=== PATIENT | male | born 1960 | race Caucasian/White ===

== ENCOUNTER 2021-02-18 09:27 | Emergency (ER) | payer BC ==
[~2021-02-18] VITALS: Ht 182.9 cm; Wt 84.1 kg
[2021-02-18 10:58] LABS: BASOPHILS # (AUTO) 0.1 X10'3 (0-0.2); BASOPHILS % (AUTO) 0.8 % (0-1); EOSINOPHILS # (AUTO) 0.2 X10'3 (0-0.9); EOSINOPHILS % (AUTO) 2.5 % (0-6); HEMATOCRIT 42.8 % (42.0-52.0); HEMOGLOBIN 14.7 g/dl (14.0-17.9); LYMPHOCYTES # (AUTO) 1.6 X10'3 (1.1-4.8); LYMPHOCYTES % (AUTO) 17.4 % (21-51); MEAN CORPUSCULAR HEMOGLOBIN 30.7 PG (27.0-31.0); MEAN CORPUSCULAR HGB CONC 34.2 g/dL (33.0-36.5); MEAN CORPUSCULAR VOLUME 89.6 FL (78-98); MEAN PLATELET VOLUME 8.8 FL (7.4-10.4); MONOCYTES # (AUTO) 0.8 X10'3 (0-0.9); MONOCYTES % (AUTO) 8.9 % (2-12); NEUTROPHILS # (AUTO) 6.5 X10'3 (1.8-7.7); NEUTROPHILS % (AUTO) 70.4 % (42-75); PLATELET COUNT 388 X10'3 (140-440); RED BLOOD COUNT 4.78 X10'6 (4.70-6.10); RED CELL DISTRIBUTION WIDTH 12.7 % (11.5-14.5); WHITE BLOOD COUNT 9.2 X10'3 (4.5-11.0)
[2021-02-18] MEDS ORDERED: furosemide 40mg/4ml inj IV ONE (11:40)
[2021-02-18 11:46] LABS: D-DIMER 0.75 MG/L FEU (0-0.50)
[2021-02-18 12:06] LABS: ANION GAP 10 (8-16); BILIRUBIN,TOTAL 0.6 MG/DL (0.1-1.0); CALCIUM 8.8 MG/DL (8.5-10.1); CHLORIDE 98 MMOL/L (99-107); CREATININE 1.22 MG/DL (0.60-1.10); GLUCOSE 404 MG/DL (70-104); POTASSIUM 3.8 MMOL/L (3.5-5.1); SODIUM 131 MMOL/L (135-145); TOTAL CARBON DIOXIDE 22.9 MMOL/L (24-32); eGFR 61 ML/MIN
[2021-02-18 12:07] LABS: ALANINE AMINOTRANSFERASE 41 U/L (12-78); ALBUMIN 3.5 G/DL (3.4-5.0); ALBUMIN/GLOBULIN RATIO 0.9 (1.1-1.5); ALKALINE PHOSPHATASE 53 IU/L (46-116); TOTAL PROTEIN 7.4 G/DL (6.4-8.2)
[2021-02-18 12:36] LABS: ASPARTATE AMINO TRANSFERASE 18 U/L (10-37); BLOOD UREA NITROGEN 22 MG/DL (7-18)
[2021-02-18] MEDS ORDERED: ASPI-611 PO (12:39)
[2021-02-18] MEDS ORDERED: LOSA1TAB41 PO (12:45)
[2021-02-18] MEDS ORDERED: diltiazem 5mg/ml 5ml inj. IV ONE (13:50)
[2021-02-18] MEDS ORDERED: CARV3.122 PO (13:58)
[2021-02-18] MEDS ORDERED: metoprolol tartrate 1mg/ml inj IV ONE (14:15)
[2021-02-18 17:14] VITALS: BP 116/77
--- NOTE | 2021-02-18 17:15 | NUR ---
PT REFUSING MEDICAL TREATMENT AND WISHES TO LEAVE MD IAM MODI AWARE AND SPOKE WITH PATIENTS AND EXPLAINED THE RISKS.
== END 2021-02-18 17:16 | disposition left against medical advice (07) ==
LOC: ER 09:28
DX: I50.9 Heart failure, unspecified (principal); Z20.822 Contact with and (suspected) exposure to COVID-19; R73.9 Hyperglycemia, unspecified; I48.91 Unspecified atrial fibrillation; R07.89 Other chest pain; R06.02 Shortness of breath; R53.1 Weakness; R20.0 Anesthesia of skin; Z88.1 Allergy status to other antibiotic agents; Z79.82 Long term (current) use of aspirin; Z79.899 Other long term (current) drug therapy
CPT/HCPCS: 36415; 71045; 80053; 83880; 84484; 85025; 85379; 87635; 93005; 96374; 96375; 99285; C9803; J1940; J3490

== ENCOUNTER 2021-02-18 20:41 | Inpatient (IN) | payer BC ==
[~2021-02-18] VITALS: Ht 185.4 cm; Wt 85.9 kg
[~2021-02-18 20:41] MED LIST: ASPI-611 PO; CARV3.122 PO; LOSA1TAB41 PO
[2021-02-18] MEDS ORDERED: diltiazem 30mg tablet PO ONE (21:10)
[2021-02-18] MEDS ORDERED: diltiazem 5mg/ml 5ml inj. IV ONE (21:10)
[2021-02-18] MEDS ORDERED: normal saline 1000ML IV soln IVB ONE (21:20)
[2021-02-18 22:05] LABS: ALANINE AMINOTRANSFERASE 37 U/L (12-78); ALBUMIN 3.2 G/DL (3.4-5.0); ALBUMIN/GLOBULIN RATIO 0.8 (1.1-1.5); ALKALINE PHOSPHATASE 51 IU/L (46-116); ANION GAP 5 (8-16); ASPARTATE AMINO TRANSFERASE 14 U/L (10-37); BILIRUBIN,TOTAL 0.6 MG/DL (0.1-1.0); BLOOD UREA NITROGEN 24 MG/DL (7-18); BUN/CREATININE RATIO 16.7 (5.4-32.0); CALCIUM 8.9 MG/DL (8.5-10.1); CHLORIDE 100 MMOL/L (99-107); CREATININE 1.44 MG/DL (0.60-1.10); GLUCOSE 355 MG/DL (70-104); POTASSIUM 3.6 MMOL/L (3.5-5.1); SODIUM 133 MMOL/L (135-145); TOTAL CARBON DIOXIDE 27.9 MMOL/L (24-32); eGFR 50 ML/MIN
[2021-02-18] MEDS ORDERED: enoxaparin 100mg/ml syringe SUBCUT ONE (22:10)
[2021-02-18] MEDS ORDERED: iohexol 350MG/ML 100ml bottle IV ONE (22:22)
[2021-02-18] MEDS ORDERED: metoprolol tartrate 1mg/ml inj IV ONE (23:05)
[2021-02-18] MEDS ORDERED: enoxaparin 40mg/0.4ml syringe SUBCUT ONE (23:10)
[2021-02-18] MEDS ORDERED: ondansetron/PF 4mg/2ml inj IV PRN (23:10)
[2021-02-18] MEDS ORDERED: magnesium hydroxide 30ml (MOM) UD suspension PO PRN (23:10)
[2021-02-18] MEDS ORDERED: acetaminophen 325mg tablet PO PRN (23:10)
[2021-02-18] MEDS ORDERED: potassium Cl 20 mEq SR tablet PO PRN (23:10)
[2021-02-18] MEDS ORDERED: PERFLUTREN PROTEIN-A MICROSPHR (Optison) 0.22 MG/ML 3ML VIAL IV PRN (23:10)
[2021-02-18] MEDS ORDERED: mag hydrox/Alum hydrox/simeth 30ml oral suspension PO PRN (23:10)
[2021-02-18] MEDS ORDERED: potassium Cl 40MEQ/1/2NS 520ml 520 ML IV PRN ×2 (23:10)
[2021-02-18] MEDS ORDERED: diltiazem-NS 100mg/100ml 100 ML IV SCH (23:25)
[2021-02-19 00:12] LABS: URINE AMPHETAMINE SCREEN NEGATIVE (Neg); URINE BARBITUATE SCREEN NEGATIVE (Neg); URINE BENZODIAZEPINES SCREEN NEGATIVE (Neg); URINE CANNABINOID SCREEN NEGATIVE (Neg); URINE COCAINE SCREEN NEGATIVE (Neg); URINE METHADONE SCREEN NEGATIVE (Neg); URINE OPIATE SCREEN NEGATIVE (Neg); URINE PHENCYCLIDINE SCREEN NEGATIVE (Neg)
[2021-02-19 04:52] LABS: BASOPHILS # (AUTO) 0.1 X10'3 (0-0.2); BASOPHILS % (AUTO) 1.1 % (0-1); EOSINOPHILS # (AUTO) 0.2 X10'3 (0-0.9); EOSINOPHILS % (AUTO) 1.6 % (0-6); HEMATOCRIT 39.2 % (42.0-52.0); HEMOGLOBIN 13.4 g/dl (14.0-17.9); LYMPHOCYTES # (AUTO) 2.1 X10'3 (1.1-4.8); LYMPHOCYTES % (AUTO) 20.4 % (21-51); MEAN CORPUSCULAR HEMOGLOBIN 30.5 PG (27.0-31.0); MEAN CORPUSCULAR HGB CONC 34.1 g/dL (33.0-36.5); MEAN CORPUSCULAR VOLUME 89.3 FL (78-98); MEAN PLATELET VOLUME 9.1 FL (7.4-10.4); MONOCYTES # (AUTO) 0.9 X10'3 (0-0.9); MONOCYTES % (AUTO) 8.4 % (2-12); NEUTROPHILS % (AUTO) 68.5 % (42-75); PLATELET COUNT 335 X10'3 (140-440); RED BLOOD COUNT 4.39 X10'6 (4.70-6.10); RED CELL DISTRIBUTION WIDTH 12.5 % (11.5-14.5); WHITE BLOOD COUNT 10.1 X10'3 (4.5-11.0)
--- NOTE | 2021-02-19 05:18 | NUR ---
Patient in room ED 10. I have received report from Rebecca ED RN and had the opportunity to ask questions and assume patient care.
[2021-02-19 05:33] LABS: ALANINE AMINOTRANSFERASE 28 U/L (12-78); ALBUMIN 2.8 G/DL (3.4-5.0); ALBUMIN/GLOBULIN RATIO 0.8 (1.1-1.5); ALKALINE PHOSPHATASE 31 IU/L (46-116); ANION GAP 12 (8-16); ASPARTATE AMINO TRANSFERASE 15 U/L (10-37); BILIRUBIN,TOTAL 0.5 MG/DL (0.1-1.0); BLOOD UREA NITROGEN 19 MG/DL (7-18); BUN/CREATININE RATIO 17.6 (5.4-32.0); CALCIUM 7.6 MG/DL (8.5-10.1); CHLORIDE 104 MMOL/L (99-107); CREATININE 1.08 MG/DL (0.60-1.10); GLUCOSE 279 MG/DL (70-104); POTASSIUM 3.5 MMOL/L (3.5-5.1); SODIUM 140 MMOL/L (135-145); TOTAL CARBON DIOXIDE 23.7 MMOL/L (24-32); TOTAL PROTEIN 6.3 G/DL (6.4-8.2); eGFR 70 ML/MIN
[2021-02-19 05:39] LABS: CHOL/HDL RATIO 3.5 (0.00-4.99); CHOLESTEROL 177 MG/DL (0-200); HDL CHOLESTEROL 51 MG/DL (35-60); LDL CHOLESTEROL 102 MG/DL (50-100); TRIGLYCERIDES 131 MG/DL (20-135)
--- NOTE | 2021-02-19 05:50 | NUR ---
Pt arrived fr/ED via gurney in no acute distress. Assisted to bed w/o incident. IV Cardizem resumed as ordered. VSS, afebrile. Oriented to bed, room, and POC.
[2021-02-19 05:58] LABS: HEMOGLOBIN A1C 13.7 % (4.5-6.2)
[2021-02-19 06:00] VITALS: BP 132/60
--- NOTE | 2021-02-19 06:10 | NUR ---
Patient in room PCU 3024. I have received report from Faye NELSON and had the opportunity to ask questions and assume patient care.
--- NOTE | 2021-02-19 06:15 | NUR ---
Problems reprioritized. Patient report given, questions answered & plan of care reviewed with Monty NELSON.
[2021-02-19] MEDS: K and/or MAG REPLACEMENT MC SCH ×2 (08:00→20:00)
[2021-02-19] MEDS: aspirin 81mg, enteric-coated 1 TAB TABLET.DR PO SCH (08:24)
[2021-02-19] MEDS: furosemide 20 MG/2 ML vial IV SCH (08:25)
[2021-02-19] MEDS: docusate sod 100mg capsule PO SCH ×3 (08:25→20:17)
[2021-02-19] MEDS: HYDROchlorothiazide 12.5mg capsule PO SCH (08:25)
[2021-02-19] MEDS: losartan 50mg tablet PO SCH (08:25)
[2021-02-19] MEDS: carVEDilol 3.125mg tablet PO SCH ×2 (08:26→20:18)
--- NOTE | 2021-02-19 10:01 | NUR ---
PAGER ID: [phone] MESSAGE: Re: Louie Garcia. Room: 3024A. Pt converted to sinus rhythm. can we switch Pt over to PO Cardizem and DC IV Cardizem? -[facility] #[phone] -Dr. Zee paged concerning Pt's rhythm
[2021-02-19] MEDS: diltiazem 30mg tablet PO SCH ×3 (10:39→20:17)
--- NOTE | 2021-02-19 12:33 | NUR ---
Assumed care from Monty NELSON. Pt is a/ox3 stable, deny pain , talking with and daughter and all seem a little emotional but smiling. pt says no needs at this time
--- NOTE | 2021-02-19 13:30 | NUR ---
1310-PAGER ID: [phone] MESSAGE: [id number] Lyssa Mcpherson- Alerting you of critical result: K is 2.5, will administer prn K. [id number] 1328-PAGER ID: [phone] MESSAGE: [id number] Louie Garcia- current BG 357 before eating lunch, hx of metformin last october per Auricular Therapist and pt. Plan? BruceRDolly [phone]-Received call back from MD Zee with orders. Called back Auricular Therapist regarding Contact with Saadia and BG and she will consult today.
[2021-02-19] MEDS ORDERED: dextrose 50%-water 50ml dispensing syringe IV PRN ×2 (13:35)
[2021-02-19] MEDS ORDERED: dextrose ORAL solution 15 GM/59 ML bottle PO PRN ×2 (13:35)
[2021-02-19] MEDS ORDERED: insulin Lispro (HumaLOG) vial - multi-dose SQ SCH (13:35)
[2021-02-19] MEDS ORDERED: MESSAGE TO PHARMACY PO ONE (13:35)
[2021-02-19] MEDS ORDERED: glucagon, human recombinant 1mg kit SUBCUT PRN (13:35)
--- NOTE | 2021-02-19 13:40 | NUR ---
Pt refusing insulin. educated of risks.
--- NOTE | 2021-02-19 13:45 | NUR ---
1404-MD Zee updated on results of MRI, stroke nurse paged, 2 attempts to contact MRI made. Call Received from Stroke NUrse Wilfred, she says she will round in 20min and arrange tele neuro consult.
--- NOTE | 2021-02-19 15:00 | NUR ---
PAGER ID: [phone] MESSAGE: Louie Garcia- pt refusing insulin. Extreme fear of SQ insulin d/t family . He wants to know if he can take an oral antidiabetic besides metformin ( had foot swelling reaction). [id number] Received call back not long afte rthis page
--- NOTE | 2021-02-19 15:00 | NUR ---
Spent 30 min discussing DM disease process. Pt refuses insulin, he says his grandmother / mother had " from taking insulin" and that he is intensely afraid to take insulin. 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 He was pretty unrealistic about his tx of his disease by diet and exercise. He isn't seeing that his AIC is indicating his past methods are insufficient to manage DM without medication and I exorted him to not leave it unaddressed. He also tells me he doesn't take his bg because he " was given a meter without strips and I had to buy the strips but they didn't tell me that" and he saaid he can afford them. I discussed the dangers associated with neglecting these things and not accepting his disease and following the medical recomendsations he has reportedly had from his primary to tx it. he seemed to consider this. He is requesting to take an oral antidiabetic from his dr here.
--- NOTE | 2021-02-19 15:57 | NUR ---
Noted pt with A1c 13.7% with no PMH of DM in EMR. TC to clinical pharmacist who states pt with Metformin rx on home med list back in October. TC to RN to discuss findings and recommend CHO controlled diet be added to diet order. RN d/w pt who confirms he was on Metformin and reports he was told by his physician to stop taking it because he no longer had DM following wt loss. Pt seen at bedside with family present. Pt confirms statement of previously having DM and being told he no longer had it following 30 lb wt loss, however states he was recently told again by a different MD that he does have DM and was given an rx for Metformin, of which pt just briefly took (per daughter) before he chose to stop taking on his own accord about 1.5-2 months ago d/t it making his feet swell. RD encouraged pt to f/u with MD regarding different rx for DM management rather than to just discontinue taking the rx, pt verbalized understanding. 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 Pt reports he has a f/u appointment with his MD 03/10, RD encouraged pt to allow his MD to discuss management options with him in order for pt to achieve optimal BG levels. RD informed pt of current A1c and BG levels during admit, pt very adamantly refused taking insulin during admit or following discharge if given a home rx for insulin. RD informed pt of complications that can occur if blood sugars are not controlled and encouraged pt to discuss his options with RN and MD. Pt verbalized understanding though continued to state he will not take insulin no matter what. RD was only able to provide brief education regarding diabetes nutrition therapy, though written materials and RD contact information were provided and pt/family were encouraged to reach out for questions. Pt would benefit from f/u verbal DM education if pt willing to discuss. Pt endorses a good appetite and denies food allergies or difficulty chewing/swallowing stating he has his dentures. Pt states he doesn't really like the food here however would not express food preferences other than stating he dislikes fish, d/w dietary. Pt denies constipation/diarrhea. LBM 02/18. All information obtained from patient regarding DM was relayed to patient's RN. Will continue to follow. Addendum: 02/19/21 at [address] Amended: Links added.
--- NOTE | 2021-02-19 16:30 | NUR ---
Stroke nurse Casandra here and arranging tele neuro consult as well as assessing pt
--- NOTE | 2021-02-19 16:30 | NUR ---
Spoke to pharmacist Montez regarding an alternative to tx pt's bg per md Zee since pt is refusing Insulin. He recommended: PAGER ID: [phone] MESSAGE: [id number] Louie Garcia- I talked to pharmacist Montez as you requested- he recommended GLimepiride 2mg po daily AND Dapaliflozin 10mg po daily . BruceRDolly [phone]
--- NOTE | 2021-02-19 17:25 | NUR ---
tele neuro exam completed with Dr Schreiber.
[2021-02-19 18:00] VITALS: BP 166/78
[2021-02-19] MEDS ORDERED: glimepiride 1 MG tablet PO SCH (18:00)
--- NOTE | 2021-02-19 18:33 | NUR ---
Problems reprioritized. Patient report given, questions answered & plan of care reviewed with Nisha RN.
[2021-02-19] MEDS: DAPAGLIFLOZIN 10MG TABLET PO SCH (20:17)
[2021-02-19] MEDS: insulin glargine (Lantus) pen - multi-dose SQ SCH (21:00)
[2021-02-19 22:00] VITALS: BP 158/80
[2021-02-20] MEDS: diltiazem 30mg tablet PO SCH ×4 (01:40→20:46)
[2021-02-20 02:00] VITALS: BP 151/76
--- NOTE | 2021-02-20 02:50 | NUR ---
BLOOD GLUCOSE MONITORING CONTINUED PER ORDER. PATIENT REFUSES TO ACCEPT INSULIN ADMINISTRATION. EDUCATED PATIENT ON USING INSULIN TO ALLOW ACCURATE CONTROL OF BLOOD GLUCOSE. PATIENT VERBALIZED UNDERSTANDING AND REFUSED MEDICATION. PATIENT STATES "I WILL TAKE ANYTHING YOU GIVE ME BY MOUTH BUT I WILL NOT TAKE INSULIN." WILL CONTINUE TO MONITOR.
[2021-02-20 06:00] VITALS: BP 162/79
--- NOTE | 2021-02-20 06:47 | NUR ---
UPON ENTERING ROOM. PATIENT UPSET. PATIENT STATES HE IS FRUSTRATED AND WANTS TO GO HOME. EXPLAINED TO PATIENT THAT THE DOCTOR WILL BE AROUND TO ANSWER ANY QUESTIONS HE MAY HAVE TODAY. PATIENT VERBALIZED UNDERSTANDING AND STATES HE WILL WAIT TO SPEAK WITH DOCTOR. VSS THROUGHOUT SHIFT. NO SIGNS OF DISTRESS NOTED. CALL LIGHT PLACED WITHIN REACH. IINSTRUCTED TO CALL FOR ASSISTANCE.
--- NOTE | 2021-02-20 06:51 | NUR ---
Patient in room PCU 3024. I have received report from Nisha NELSON and had the opportunity to ask questions and assume patient care.
[2021-02-20] MEDS: losartan 50mg tablet PO SCH (08:00)
[2021-02-20] MEDS: K and/or MAG REPLACEMENT MC SCH ×2 (08:00→20:00)
[2021-02-20] MEDS: docusate sod 100mg capsule PO SCH ×2 (08:00→20:00)
[2021-02-20 08:08] LABS: BASOPHILS # (AUTO) 0.1 X10'3 (0-0.2); BASOPHILS % (AUTO) 0.9 % (0-1); EOSINOPHILS # (AUTO) 0.3 X10'3 (0-0.9); EOSINOPHILS % (AUTO) 3.1 % (0-6); HEMATOCRIT 38.7 % (42.0-52.0); HEMOGLOBIN 13.5 g/dl (14.0-17.9); LYMPHOCYTES # (AUTO) 1.9 X10'3 (1.1-4.8); LYMPHOCYTES % (AUTO) 20.6 % (21-51); MEAN CORPUSCULAR HEMOGLOBIN 30.9 PG (27.0-31.0); MEAN CORPUSCULAR HGB CONC 34.9 g/dL (33.0-36.5); MEAN CORPUSCULAR VOLUME 88.5 FL (78-98); MEAN PLATELET VOLUME 8.4 FL (7.4-10.4); MONOCYTES # (AUTO) 0.7 X10'3 (0-0.9); MONOCYTES % (AUTO) 7.7 % (2-12); NEUTROPHILS # (AUTO) 6.3 X10'3 (1.8-7.7); NEUTROPHILS % (AUTO) 67.7 % (42-75); PLATELET COUNT 365 X10'3 (140-440); RED BLOOD COUNT 4.37 X10'6 (4.70-6.10); RED CELL DISTRIBUTION WIDTH 12.5 % (11.5-14.5); WHITE BLOOD COUNT 9.3 X10'3 (4.5-11.0)
[2021-02-20 08:09] LABS: ALANINE AMINOTRANSFERASE 28 U/L (12-78); ALBUMIN 3.1 G/DL (3.4-5.0); ALBUMIN/GLOBULIN RATIO 0.8 (1.1-1.5); ALKALINE PHOSPHATASE 33 IU/L (46-116); ANION GAP 13 (8-16); ASPARTATE AMINO TRANSFERASE 13 U/L (10-37); BILIRUBIN,TOTAL 0.6 MG/DL (0.1-1.0); BLOOD UREA NITROGEN 20 MG/DL (7-18); BUN/CREATININE RATIO 18.9 (5.4-32.0); CALCIUM 8.5 MG/DL (8.5-10.1); CHLORIDE 101 MMOL/L (99-107); CHOLESTEROL 189 MG/DL (0-200); CREATININE 1.06 MG/DL (0.60-1.10); GLUCOSE 166 MG/DL (70-104); HDL CHOLESTEROL 47 MG/DL (35-60); LDL CHOLESTEROL 107 MG/DL (50-100); POTASSIUM 3.3 MMOL/L (3.5-5.1); SODIUM 139 MMOL/L (135-145); TOTAL CARBON DIOXIDE 24.8 MMOL/L (24-32); TOTAL PROTEIN 6.8 G/DL (6.4-8.2); TRIGLYCERIDES 154 MG/DL (20-135); eGFR 72 ML/MIN
[2021-02-20] MEDS: carVEDilol 3.125mg tablet PO SCH ×2 (09:44→20:46)
[2021-02-20] MEDS: furosemide 20 MG/2 ML vial IV SCH (09:44)
[2021-02-20] MEDS: HYDROchlorothiazide 12.5mg capsule PO SCH (09:44)
[2021-02-20] MEDS: aspirin 81mg, enteric-coated 1 TAB TABLET.DR PO SCH (09:45)
[2021-02-20] MEDS: DAPAGLIFLOZIN 10MG TABLET PO SCH (09:45)
[2021-02-20] MEDS: potassium Cl 20 mEq SR tablet PO PRN ×3 (10:33→20:47)
[2021-02-20 11:00] VITALS: BP 126/70
--- NOTE | 2021-02-20 11:22 | NUR ---
Paged Dr. Zee regarding todays plan of care. PAGER ID: [phone] MESSAGE: [id number] Louie Garcia. I do not see an order for carotid ultrasound today. ALDO Goldberg
[2021-02-20] MEDS: atorvastatin 20mg tablet PO SCH (11:50)
[2021-02-20 15:00] VITALS: BP 119/74
--- NOTE | 2021-02-20 15:42 | NUR ---
Pt still has some difficulty with left leg, though no real drift detected. Left arm has subtle drift with minor impairment in fine motor. 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 Decreased sensation to light touch over left arm and leg persists. Pt describes both as feeling numb. Cognition intact. Pt anxiously awaiting discharge. Informed that decision will be up to the hospitalist.
--- NOTE | 2021-02-20 17:06 | NUR ---
Paged Dr. Zee PAGER ID: [phone] MESSAGE: [id number] Louie Garcia. I called telemed regarding Eliqius, they are suppose to call you. Patient just got vasc study done, pending results. Patient is eager to go home today. PCU Ashlyn
[2021-02-20 18:00] VITALS: BP 143/82
--- NOTE | 2021-02-20 18:12 | NUR ---
Problems reprioritized. Patient report given, questions answered & plan of care reviewed with Nisha RN.
--- NOTE | 2021-02-20 18:16 | NUR ---
Orientee documentation: I have reviewed and agree with all interventions, assessments performed and documented by Shania NELSON.
--- NOTE | 2021-02-20 18:18 | NUR ---
Orientee Medication Administration: For this medication-pass time frame, all medication were reviewed, dispensed, administered and documented per hospital policy by Shania NELSON.
--- NOTE | 2021-02-20 19:44 | NUR ---
Page sent to hospitalist regarding patient request for D/C. No answer at this time.
[2021-02-20] MEDS: insulin glargine (Lantus) pen - multi-dose SQ SCH (21:00)
[2021-02-20 22:00] VITALS: BP 158/77
[2021-02-21] MEDS: diltiazem 30mg tablet PO SCH ×4 (02:00→14:10)
--- NOTE | 2021-02-21 04:24 | NUR ---
Patient continues to refuse insulin administration. Educated patient on use of insulin administration and still refuses. Patient upset upon initial assessment. Patient states that he is tired of waiting around for an answer. Educated patient that MD will be in to speak with him in the AM. Patient agreeing to stay through the night. Acknowledge patient request for minimal interruptions throughout shift to allow rest. Will continue to monitor.
[2021-02-21 06:00] VITALS: BP 148/68
[2021-02-21 06:13] LABS: BASOPHILS # (AUTO) 0.1 X10'3 (0-0.2); BASOPHILS % (AUTO) 1.1 % (0-1); EOSINOPHILS # (AUTO) 0.3 X10'3 (0-0.9); HEMATOCRIT 40.1 % (42.0-52.0); HEMOGLOBIN 13.8 g/dl (14.0-17.9); LYMPHOCYTES # (AUTO) 1.8 X10'3 (1.1-4.8); LYMPHOCYTES % (AUTO) 19.8 % (21-51); MEAN CORPUSCULAR HEMOGLOBIN 30.6 PG (27.0-31.0); MEAN CORPUSCULAR HGB CONC 34.4 g/dL (33.0-36.5); MEAN CORPUSCULAR VOLUME 88.7 FL (78-98); MEAN PLATELET VOLUME 8.4 FL (7.4-10.4); MONOCYTES # (AUTO) 0.9 X10'3 (0-0.9); MONOCYTES % (AUTO) 10.4 % (2-12); NEUTROPHILS # (AUTO) 5.9 X10'3 (1.8-7.7); NEUTROPHILS % (AUTO) 65.7 % (42-75); PLATELET COUNT 367 X10'3 (140-440); RED BLOOD COUNT 4.52 X10'6 (4.70-6.10); RED CELL DISTRIBUTION WIDTH 12.5 % (11.5-14.5)
[2021-02-21 06:29] LABS: ALANINE AMINOTRANSFERASE 24 U/L (12-78); ALBUMIN 3.1 G/DL (3.4-5.0); ALBUMIN/GLOBULIN RATIO 0.9 (1.1-1.5); ALKALINE PHOSPHATASE 33 IU/L (46-116); ANION GAP 15 (8-16); ASPARTATE AMINO TRANSFERASE 13 U/L (10-37); BILIRUBIN,TOTAL 0.7 MG/DL (0.1-1.0); BLOOD UREA NITROGEN 24 MG/DL (7-18); BUN/CREATININE RATIO 23.1 (5.4-32.0); CALCIUM 8.7 MG/DL (8.5-10.1); CHLORIDE 101 MMOL/L (99-107); CREATININE 1.04 MG/DL (0.60-1.10); GLUCOSE 146 MG/DL (70-104); POTASSIUM 3.6 MMOL/L (3.5-5.1); SODIUM 138 MMOL/L (135-145); TOTAL CARBON DIOXIDE 22.5 MMOL/L (24-32); TOTAL PROTEIN 6.7 G/DL (6.4-8.2); eGFR 73 ML/MIN
--- NOTE | 2021-02-21 06:30 | NUR ---
Received Report From Annie Mars RN
--- NOTE | 2021-02-21 07:24 | NUR ---
RECEIVED REPORT FROM OMAR JOHN
[2021-02-21] MEDS: K and/or MAG REPLACEMENT MC SCH (08:00)
[2021-02-21] MEDS: docusate sod 100mg capsule PO SCH (08:00)
[2021-02-21] MEDS: furosemide 20 MG/2 ML vial IV SCH (08:55)
[2021-02-21] MEDS: carVEDilol 3.125mg tablet PO SCH (09:02)
[2021-02-21] MEDS: losartan 50mg tablet PO SCH (09:04)
[2021-02-21] MEDS: DAPAGLIFLOZIN 10MG TABLET PO SCH (09:05)
[2021-02-21] MEDS: aspirin 81mg, enteric-coated 1 TAB TABLET.DR PO SCH (09:05)
[2021-02-21] MEDS: atorvastatin 20mg tablet PO SCH (09:06)
[2021-02-21] MEDS: HYDROchlorothiazide 12.5mg capsule PO SCH (09:08)
[2021-02-21 10:00] VITALS: BP 138/71
--- NOTE | 2021-02-21 11:27 | NUR ---
Page Sent PAGER ID: [phone] MESSAGE: LIVE [phone] RE: MADELIN QUIÑONEZ [id number] PT IS ASKING WHEN HE IS BEING D/C'D. THANK YOU
--- NOTE | 2021-02-21 11:52 | NUR ---
Handed Pt back to Annie Mars RN
--- NOTE | 2021-02-21 11:53 | NUR ---
Student documentation: I have reviewed and agree with all interventions, assessments performed and documented by Will .
[2021-02-21] MEDS ORDERED: DILT30TA2 PO (13:33)
[2021-02-21] MEDS ORDERED: ATOR20TA66 PO (13:33)
[2021-02-21] MEDS ORDERED: DAPA10TA PO (13:33)
[2021-02-21] MEDS ORDERED: CLOP75TA15 PO (13:33)
[2021-02-21] MEDS ORDERED: CARV3.122 PO (13:33)
--- NOTE | 2021-02-21 14:58 | NUR ---
Awaiting discharge. Left upper ext drift persists. Sensation improving left arm and leg,though still diminished. Instructed to takes lmeds as ordered and see PMD per instructions.
--- NOTE | 2021-02-21 15:20 | NUR ---
D/C INSTRUCTIONS GIVEN, QUESTIONS ANSWERED. BELONGINGS GATHERED BY SIGNIFICANT OTHER AND PATIENT, SENT WITH PT. IV D/C'D, CANNULA INTACT, NO COMPLICATIONS. D/C'D PT IN STABLE CONDITION TO HOME IN PRIVATE VEHICLE ACCOMPANIED BY SIGNIFICANT OTHER. PT LEFT FLOOR AT 1520
== END 2021-02-21 15:21 | disposition home or self-care (01) | DRG 64 ==
LOC: ER 20:43 → ED HOLD 23:17 → PCU 3S 02-19 05:30
PROVIDERS: ADMIT Internal Medicine; ATTEND Internal Medicine
PROC: B32T1ZZ Computerized Tomography (CT Scan) of Left Pulmonary Artery using Low Osmolar Contrast (ICD-10-PCS; principal; 2021-02-18)
PROC: B3201ZZ Computerized Tomography (CT Scan) of Thoracic Aorta using Low Osmolar Contrast (ICD-10-PCS; 2021-02-18)
PROC: B32S1ZZ Computerized Tomography (CT Scan) of Right Pulmonary Artery using Low Osmolar Contrast (ICD-10-PCS; 2021-02-18)
DX: I63.9 Cerebral infarction, unspecified (principal); I50.33 Acute on chronic diastolic (congestive) heart failure; E87.1 Hypo-osmolality and hyponatremia; N17.9 Acute kidney failure, unspecified; I48.20 Chronic atrial fibrillation, unspecified; I11.0 Hypertensive heart disease with heart failure; R29.703 NIHSS score 3; E11.65 Type 2 diabetes mellitus with hyperglycemia; I25.10 Atherosclerotic heart disease of native coronary artery without angina pectoris; M47.9 Spondylosis, unspecified; Z87.891 Personal history of nicotine dependence; Z88.1 Allergy status to other antibiotic agents; Z79.899 Other long term (current) drug therapy; Z79.82 Long term (current) use of aspirin
CPT/HCPCS: 36415; 70551; 71275; 80053; 80061; 80305; 82948; 83036; 83735; 83880; 84443; 84484; 85025; 93005; 93306; 93880; 96361; 96374; 97116; 97161; 97530; 99285; G0378; J1650; J1815; J1940; J3490; J7030; Q9967

== ENCOUNTER 2021-10-13 10:09 | Inpatient (IN) | payer BC ==
[~2021-10-13] VITALS: Ht 182.9 cm; Wt 92.5 kg
[2021-10-13] VITALS (7 sets, daily range): BP systolic 92–137; BP diastolic 51–94
[~2021-10-13 10:09] MED LIST changes: +ATOR20TA66 PO; +CLOP75TA15 PO; +DAPA10TA PO; +DILT30TA2 PO
[2021-10-13 10:38] LABS: BASOPHILS # (AUTO) 0.1 X10'3 (0-0.2); BASOPHILS % (AUTO) 0.7 % (0-1); EOSINOPHILS # (AUTO) 0.1 X10'3 (0-0.9); HEMATOCRIT 32.5 % (42.0-52.0); HEMOGLOBIN 10.4 g/dl (14.0-17.9); LYMPHOCYTES # (AUTO) 1.4 X10'3 (1.1-4.8); LYMPHOCYTES % (AUTO) 11.3 % (21-51); MEAN CORPUSCULAR HEMOGLOBIN 25.2 PG (27.0-31.0); MEAN PLATELET VOLUME 8.6 FL (7.4-10.4); MONOCYTES # (AUTO) 0.9 X10'3 (0-0.9); MONOCYTES % (AUTO) 7.2 % (2-12); NEUTROPHILS # (AUTO) 10.1 X10'3 (1.8-7.7); NEUTROPHILS % (AUTO) 79.8 % (42-75); PLATELET COUNT 509 X10'3 (140-440); RED BLOOD COUNT 4.11 X10'6 (4.70-6.10); RED CELL DISTRIBUTION WIDTH 14.5 % (11.5-14.5); WHITE BLOOD COUNT 12.7 X10'3 (4.5-11.0)
[2021-10-13] MEDS ORDERED: furosemide 40mg/4ml inj IV STA (10:59)
[2021-10-13 11:01] LABS: ALANINE AMINOTRANSFERASE 23 U/L (12-78); ALBUMIN 2.8 G/DL (3.4-5.0); ALBUMIN/GLOBULIN RATIO 0.6 (1.1-1.5); ALKALINE PHOSPHATASE 49 IU/L (46-116); ANION GAP 7 (8-16); ASPARTATE AMINO TRANSFERASE 12 U/L (10-37); BILIRUBIN,TOTAL 0.5 MG/DL (0.1-1.0); BLOOD UREA NITROGEN 23 MG/DL (7-18); BUN/CREATININE RATIO 18.1 (5.4-32.0); CALCIUM 8.6 MG/DL (8.5-10.1); CHLORIDE 94 MMOL/L (99-107); CREATININE 1.27 MG/DL (0.60-1.10); POTASSIUM 4.3 MMOL/L (3.5-5.1); SODIUM 128 MMOL/L (135-145); TOTAL CARBON DIOXIDE 26.8 MMOL/L (24-32); TOTAL PROTEIN 7.3 G/DL (6.4-8.2); eGFR 58 ML/MIN
[2021-10-13 11:05] LABS: GLUCOSE 483 MG/DL (70-104)
[2021-10-13] MEDS ORDERED: POTA-192 PO (11:21)
[2021-10-13] MEDS ORDERED: ALBU18HF2 INH (11:21)
[2021-10-13] MEDS ORDERED: ATOR20TA PO (11:21)
[2021-10-13] MEDS ORDERED: GABA300C PO (11:21)
[2021-10-13] MEDS ORDERED: METF-436 PO (11:21)
[2021-10-13] MEDS ORDERED: RIVA20TA PO (11:21)
[2021-10-13] MEDS ORDERED: FURO-150 PO (11:21)
--- NOTE | 2021-10-13 11:45 | NUR ---
DR. PYLE UPDATED THAT HR STILL IN 140S.
[2021-10-13] MEDS ORDERED: diltiazem 5mg/ml 5ml inj. IV ONE (11:55)
--- NOTE | 2021-10-13 12:44 | NUR ---
DR JARAMILLO NOTIFIED THAT HR UNCHANGED AFTER CARDIZEM
[2021-10-13] MEDS ORDERED: insulin regular, human 10 units/0.1 ml syringe IV ONE (12:45)
--- NOTE | 2021-10-13 13:05 | NUR ---
poc bg [phone]
[2021-10-13] MEDS ORDERED: potassium CL 10mEq/100ml bag 100 ML IV PRN (13:55)
[2021-10-13] MEDS ORDERED: POTASSIUM BICARB 20meq eff tab 20 MEQ TABLET.EFF PO PRN ×2 (13:55)
[2021-10-13] MEDS ORDERED: magnesium hydroxide 30ml (MOM) UD suspension PO PRN (13:55)
[2021-10-13] MEDS ORDERED: magnesium Cl slow-release 64mg tablet PO PRN (13:55)
[2021-10-13] MEDS ORDERED: magnesium 4gm in 100ml NS 100 ML IV PRN (13:55)
[2021-10-13] MEDS ORDERED: magnesium 2GM in 50ml NS 50 ML IV PRN (13:55)
[2021-10-13] MEDS ORDERED: mag hydrox/Alum hydrox/simeth 30ml oral suspension PO PRN (13:55)
[2021-10-13] MEDS ORDERED: ondansetron/PF 4mg/2ml inj IV PRN (13:55)
[2021-10-13] MEDS ORDERED: MESSAGE TO PHARMACY PO ONE (14:00)
[2021-10-13] MEDS ORDERED: DEXTROSE 15 GM of carb/4 tabs (each vial/BOTTLE has 4 tablets) PO PRN ×2 (14:00)
[2021-10-13] MEDS ORDERED: glucagon, human recombinant 1mg kit SUBCUT PRN (14:00)
[2021-10-13] MEDS ORDERED: dextrose 50%-water 50ml dispensing syringe IV PRN ×2 (14:00)
[2021-10-13] MEDS ORDERED: CefTRIAXone 2gm/NS 100ml IVPB 100 ML IV ONE (14:05)
[2021-10-13] MEDS: carVEDilol 3.125mg tablet PO SCH ×2 (14:56→20:19)
[2021-10-13] MEDS: normal saline 1000ml 1,000 ML IV SCH (15:00)
--- NOTE | 2021-10-13 17:43 | NUR ---
Sent to Dr. Lopez: [id number] Jose: pt is in Aflutter at 145. Please advise. Lori NELSON [phone]
[2021-10-13] MEDS ORDERED: diltiazem-NS 100mg/100ml 100 ML IV SCH (18:00)
[2021-10-13] MEDS: insulin Lispro (HumaLOG) vial - multi-dose SQ SCH (19:25)
[2021-10-13] MEDS ORDERED: carVEDilol 3.125mg tablet PO SCH (20:00)
[2021-10-13] MEDS: K and/or MAG REPLACEMENT MC SCH (20:00)
[2021-10-13] MEDS: atorvastatin 20mg tablet PO SCH (20:19)
[2021-10-13] MEDS: furosemide 40mg/4ml inj IV SCH (20:19)
[2021-10-13] MEDS: heparin, porcine 5000 units/ml vial SQ SCH (20:20)
[2021-10-13] MEDS ORDERED: temazepam 15mg capsule PO PRN (21:00)
[2021-10-13] MEDS: insulin glargine (Lantus) pen - multi-dose SQ SCH (21:34)
[2021-10-14] VITALS (13 sets, daily range): BP systolic 84–121; BP diastolic 56–89
--- NOTE | 2021-10-14 02:13 | NUR ---
Paged Dr Carmona : "For patient in room 3018B, Louie Garcia. Pt on Cardizem drip 5ml/hr. BP now in 84/56. Pt still in A-Flutter but HR is now better, in the 70s. Any order regarding the blood pressure? OMAR Sesay [phone]"
--- NOTE | 2021-10-14 02:16 | NUR ---
Per Dr Carmona, stop Cardizem drip for now due to patient's BP in 80's/50's. Current HR 74, A-Flutter. Linda charles stopped @0214. Will continue to monitor patient and check vital signs per protocol.
[2021-10-14] MEDS: acetaminophen 325mg tablet PO PRN (02:28)
--- NOTE | 2021-10-14 06:13 | NUR ---
Change of shift report given to OMAR Alberto. Issues reprioritized. patient stable. Cardizem drip still stopped for now per Dr Carmona. HR in the 80's. Last BP 94/69. No acute complaints
[2021-10-14 06:19] LABS: BASOPHILS # (AUTO) 0.1 X10'3 (0-0.2); BASOPHILS % (AUTO) 1.2 % (0-1); EOSINOPHILS # (AUTO) 0.2 X10'3 (0-0.9); EOSINOPHILS % (AUTO) 1.8 % (0-6); HEMATOCRIT 29.4 % (42.0-52.0); HEMOGLOBIN 9.7 g/dl (14.0-17.9); LYMPHOCYTES # (AUTO) 2.1 X10'3 (1.1-4.8); LYMPHOCYTES % (AUTO) 19.2 % (21-51); MEAN CORPUSCULAR HEMOGLOBIN 25.7 PG (27.0-31.0); MEAN CORPUSCULAR HGB CONC 32.9 g/dL (33.0-36.5); MEAN CORPUSCULAR VOLUME 78.1 FL (78-98); MEAN PLATELET VOLUME 8.9 FL (7.4-10.4); MONOCYTES # (AUTO) 0.9 X10'3 (0-0.9); MONOCYTES % (AUTO) 8.5 % (2-12); NEUTROPHILS # (AUTO) 7.7 X10'3 (1.8-7.7); NEUTROPHILS % (AUTO) 69.3 % (42-75); PLATELET COUNT 430 X10'3 (140-440); RED BLOOD COUNT 3.76 X10'6 (4.70-6.10); WHITE BLOOD COUNT 11.1 X10'3 (4.5-11.0)
[2021-10-14 06:51] LABS: ALANINE AMINOTRANSFERASE 17 U/L (12-78); ALBUMIN 2.3 G/DL (3.4-5.0); ALBUMIN/GLOBULIN RATIO 0.6 (1.1-1.5); ALKALINE PHOSPHATASE 36 IU/L (46-116); ANION GAP 9 (8-16); ASPARTATE AMINO TRANSFERASE 14 U/L (10-37); BILIRUBIN,TOTAL 0.3 MG/DL (0.1-1.0); BLOOD UREA NITROGEN 27 MG/DL (7-18); BUN/CREATININE RATIO 22.1 (5.4-32.0); CALCIUM 8.4 MG/DL (8.5-10.1); CHLORIDE 100 MMOL/L (99-107); CREATININE 1.22 MG/DL (0.60-1.10); GLUCOSE 228 MG/DL (70-104); POTASSIUM 3.6 MMOL/L (3.5-5.1); SODIUM 134 MMOL/L (135-145); TOTAL CARBON DIOXIDE 25.2 MMOL/L (24-32); TOTAL PROTEIN 6.3 G/DL (6.4-8.2); eGFR 61 ML/MIN
[2021-10-14] MEDS: K and/or MAG REPLACEMENT MC SCH ×2 (10:20→20:00)
[2021-10-14] MEDS: furosemide 40mg/4ml inj IV SCH ×2 (10:21→20:00)
[2021-10-14] MEDS: heparin, porcine 5000 units/ml vial SQ SCH ×2 (10:32→20:00)
[2021-10-14] MEDS: carVEDilol 3.125mg tablet PO SCH ×2 (10:32→21:43)
[2021-10-14] MEDS ORDERED: amiodarone 150mg/dext, iso-os 100 ML IV ONE (12:30)
[2021-10-14] MEDS: amiodarone/D5 360MG/200ML BAG 200 ML IV SCH ×3 (13:23→19:33)
[2021-10-14] MEDS: acetylcysteine 200 MG/ml 4ml vial PO SCH ×2 (14:15→20:00)
[2021-10-14] MEDS ORDERED: iohexol 300mg/ml 100ml inj. ONE (15:41)
[2021-10-14] MEDS: insulin Lispro (HumaLOG) vial - multi-dose SQ SCH ×2 (18:04→21:48)
--- NOTE | 2021-10-14 18:10 | NUR ---
Patient in room PCU 3018. I have received report from Carmen and had the opportunity to ask questions and assume patient care.
[2021-10-14] MEDS: atorvastatin 20mg tablet PO SCH (21:43)
[2021-10-14] MEDS: insulin glargine (Lantus) pen - multi-dose SQ SCH (21:43)
[2021-10-15] VITALS (10 sets, daily range): BP systolic 81–130; BP diastolic 46–82
[2021-10-15] MEDS: normal saline 1000ml 1,000 ML IV SCH ×2 (00:06→02:48)
[2021-10-15] MEDS: acetaminophen 325mg tablet PO PRN (06:14)
[2021-10-15 06:29] LABS: BASOPHILS # (AUTO) 0.1 X10'3 (0-0.2); BASOPHILS % (AUTO) 0.7 % (0-1); EOSINOPHILS # (AUTO) 0.2 X10'3 (0-0.9); EOSINOPHILS % (AUTO) 1.5 % (0-6); HEMATOCRIT 29.9 % (42.0-52.0); HEMOGLOBIN 9.8 g/dl (14.0-17.9); LYMPHOCYTES # (AUTO) 1.8 X10'3 (1.1-4.8); LYMPHOCYTES % (AUTO) 16.2 % (21-51); MEAN CORPUSCULAR HEMOGLOBIN 25.9 PG (27.0-31.0); MEAN CORPUSCULAR HGB CONC 32.9 g/dL (33.0-36.5); MEAN CORPUSCULAR VOLUME 78.6 FL (78-98); MEAN PLATELET VOLUME 8.6 FL (7.4-10.4); MONOCYTES % (AUTO) 9.1 % (2-12); NEUTROPHILS # (AUTO) 8.3 X10'3 (1.8-7.7); NEUTROPHILS % (AUTO) 72.5 % (42-75); PLATELET COUNT 476 X10'3 (140-440); RED CELL DISTRIBUTION WIDTH 14.4 % (11.5-14.5); WHITE BLOOD COUNT 11.4 X10'3 (4.5-11.0)
[2021-10-15] MEDS: amiodarone/D5 360MG/200ML BAG 200 ML IV SCH ×4 (06:42→19:32)
[2021-10-15 06:59] LABS: ALANINE AMINOTRANSFERASE 17 U/L (12-78); ALBUMIN 2.5 G/DL (3.4-5.0); ALBUMIN/GLOBULIN RATIO 0.6 (1.1-1.5); ALKALINE PHOSPHATASE 35 IU/L (46-116); ANION GAP 8 (8-16); ASPARTATE AMINO TRANSFERASE 15 U/L (10-37); BILIRUBIN,TOTAL 0.3 MG/DL (0.1-1.0); BLOOD UREA NITROGEN 30 MG/DL (7-18); BUN/CREATININE RATIO 23.1 (5.4-32.0); CALCIUM 8.4 MG/DL (8.5-10.1); CHLORIDE 97 MMOL/L (99-107); GLUCOSE 130 MG/DL (70-104); POTASSIUM 3.8 MMOL/L (3.5-5.1); SODIUM 132 MMOL/L (135-145); TOTAL CARBON DIOXIDE 27.4 MMOL/L (24-32); TOTAL PROTEIN 6.5 G/DL (6.4-8.2); eGFR 57 ML/MIN
[2021-10-15] MEDS: carVEDilol 3.125mg tablet PO SCH (08:00)
[2021-10-15] MEDS: heparin, porcine 5000 units/ml vial SQ SCH ×2 (08:00→20:15)
[2021-10-15] MEDS: K and/or MAG REPLACEMENT MC SCH ×2 (08:00→20:00)
[2021-10-15] MEDS: furosemide 40mg/4ml inj IV SCH (09:25)
[2021-10-15] MEDS: acetylcysteine 200 MG/ml 4ml vial PO SCH ×2 (09:27→20:15)
[2021-10-15] MEDS: insulin Lispro (HumaLOG) vial - multi-dose SQ SCH ×2 (10:14→13:32)
--- NOTE | 2021-10-15 10:57 | NUR ---
DM consult: Pt with T2DM, A1c pending at this time. Of note BG 483 mg/dL on admit. Pt would benefit from DM education pending A1c results. Will continue to follow. Addendum: 10/15/21 at [address] Amended: Links added.
[2021-10-15] MEDS ORDERED: digoxin 250mcg (0.25mg) tablet PO ONE (11:40)
[2021-10-15] MEDS ORDERED: normal saline 500ml IV soln 500 ML IV ONE (14:55)
[2021-10-15] MEDS: atorvastatin 20mg tablet PO SCH (20:14)
[2021-10-15] MEDS: insulin glargine (Lantus) pen - multi-dose SQ SCH (20:16)
[2021-10-16] VITALS: BP 108/72
[2021-10-16 02:00] VITALS: BP 126/78
[2021-10-16] MEDS: amiodarone/D5 360MG/200ML BAG 200 ML IV SCH ×4 (04:29→19:06)
--- NOTE | 2021-10-16 06:30 | NUR ---
Change of shift report given to OMAR Franco. Issues reprioritized. pt stable. No acute complaints
--- NOTE | 2021-10-16 06:36 | NUR ---
Patient in room PCU 3018. I have received report from Lázaro NELSON and had the opportunity to ask questions and assume patient care. Patient is resting in bed in no acute distress.
[2021-10-16 06:40] LABS: BASOPHILS # (AUTO) 0.1 X10'3 (0-0.2); BASOPHILS % (AUTO) 0.7 % (0-1); EOSINOPHILS # (AUTO) 0.1 X10'3 (0-0.9); EOSINOPHILS % (AUTO) 1.1 % (0-6); HEMATOCRIT 27.7 % (42.0-52.0); HEMOGLOBIN 9.3 g/dl (14.0-17.9); LYMPHOCYTES # (AUTO) 1.5 X10'3 (1.1-4.8); LYMPHOCYTES % (AUTO) 14.3 % (21-51); MEAN CORPUSCULAR HEMOGLOBIN 26.5 PG (27.0-31.0); MEAN CORPUSCULAR HGB CONC 33.6 g/dL (33.0-36.5); MEAN PLATELET VOLUME 8.6 FL (7.4-10.4); MONOCYTES # (AUTO) 1.1 X10'3 (0-0.9); MONOCYTES % (AUTO) 10.4 % (2-12); NEUTROPHILS # (AUTO) 7.5 X10'3 (1.8-7.7); NEUTROPHILS % (AUTO) 73.5 % (42-75); PLATELET COUNT 414 X10'3 (140-440); RED BLOOD COUNT 3.51 X10'6 (4.70-6.10); RED CELL DISTRIBUTION WIDTH 14.1 % (11.5-14.5); WHITE BLOOD COUNT 10.2 X10'3 (4.5-11.0)
[2021-10-16 07:00] VITALS: BP 119/79
[2021-10-16 07:13] LABS: ALANINE AMINOTRANSFERASE 22 U/L (12-78); ALBUMIN 2.3 G/DL (3.4-5.0); ALBUMIN/GLOBULIN RATIO 0.6 (1.1-1.5); ALKALINE PHOSPHATASE 36 IU/L (46-116); ANION GAP 9 (8-16); ASPARTATE AMINO TRANSFERASE 20 U/L (10-37); BILIRUBIN,TOTAL 0.2 MG/DL (0.1-1.0); BLOOD UREA NITROGEN 30 MG/DL (7-18); BUN/CREATININE RATIO 23.4 (5.4-32.0); CALCIUM 8.1 MG/DL (8.5-10.1); CHLORIDE 101 MMOL/L (99-107); CREATININE 1.28 MG/DL (0.60-1.10); GLUCOSE 90 MG/DL (70-104); POTASSIUM 3.5 MMOL/L (3.5-5.1); SODIUM 136 MMOL/L (135-145); TOTAL CARBON DIOXIDE 26.1 MMOL/L (24-32); eGFR 58 ML/MIN
--- NOTE | 2021-10-16 07:56 | NUR ---
Page Sent promotional table spacer PAGER ID: [phone] MESSAGE: [phone] Jose. HR has been in the 130s all night continues to remain in a flutter. Joan @3131 (95 character message out of a maximum of 240)
[2021-10-16] MEDS: K and/or MAG REPLACEMENT MC SCH ×2 (08:00→20:00)
[2021-10-16] MEDS: acetylcysteine 200 MG/ml 4ml vial PO SCH (09:29)
[2021-10-16] MEDS: heparin, porcine 5000 units/ml vial SQ SCH ×2 (09:30→20:00)
--- NOTE | 2021-10-16 10:02 | NUR ---
Pt HR still in 130sBP ok today. Dr. Lopez gave me orders to restart coreg today now and to restart lasix but change to 40mg IV once daily and to wait a couple of hours to make sure BP ok.
--- NOTE | 2021-10-16 10:10 | NUR ---
second call to pharmacy to bring up missing short acting insulin
[2021-10-16] MEDS: carVEDilol 3.125mg tablet PO SCH (10:41)
[2021-10-16] MEDS: insulin Lispro (HumaLOG) vial - multi-dose SQ SCH ×3 (10:41→19:48)
[2021-10-16 11:00] VITALS: BP 106/68
[2021-10-16] MEDS ORDERED: furosemide 40mg/4ml inj IV SCH (12:00)
--- NOTE | 2021-10-16 13:25 | NUR ---
1200 BP 91/71 lasix held for low BP
--- NOTE | 2021-10-16 14:31 | NUR ---
patient had turkey sandwich from home for lunch. They did not have carb count so lunch carbs not covered. Pt and educated about bringing in outside food and told its better for him to eat food here or needs to bring carb info to effectively treat the patient. Reinforcement needed.
[2021-10-16 15:00] VITALS: BP 105/72
[2021-10-16] MEDS: normal saline 1000ml 1,000 ML IV SCH ×2 (17:00→22:09)
--- NOTE | 2021-10-16 18:01 | NUR ---
patient once again educated to use urinal for accurate track of I&O . Pt educated about limiting fluids while being diuresed. reinforcement needed for both
--- NOTE | 2021-10-16 18:20 | NUR ---
amio ran at 0.5 mg or 16.67ml/hr all day. The IV spreadsheet was wrong i did not catch it until the end of the day.
--- NOTE | 2021-10-16 18:28 | NUR ---
Problems reprioritized. Patient report given, questions answered & plan of care reviewed with Bora NELSON . Patient resting in bed in no acute distress.
[2021-10-16] MEDS: atorvastatin 20mg tablet PO SCH (19:11)
[2021-10-16] MEDS: acetaminophen 325mg tablet PO PRN (19:12)
[2021-10-16] MEDS: insulin glargine (Lantus) pen - multi-dose SQ SCH (21:00)
[2021-10-16 22:00] VITALS: BP 108/69
[2021-10-17] VITALS (10 sets, daily range): BP systolic 79–133; BP diastolic 36–86
[2021-10-17] MEDS: amiodarone/D5 360MG/200ML BAG 200 ML IV SCH ×2 (01:52→07:14)
[2021-10-17 06:18] LABS: BASOPHILS # (AUTO) 0.1 X10'3 (0-0.2); BASOPHILS % (AUTO) 0.7 % (0-1); EOSINOPHILS # (AUTO) 0.1 X10'3 (0-0.9); HEMATOCRIT 28.8 % (42.0-52.0); HEMOGLOBIN 9.5 g/dl (14.0-17.9); LYMPHOCYTES # (AUTO) 1.4 X10'3 (1.1-4.8); LYMPHOCYTES % (AUTO) 12.8 % (21-51); MEAN CORPUSCULAR HEMOGLOBIN 25.9 PG (27.0-31.0); MEAN CORPUSCULAR VOLUME 78.3 FL (78-98); MEAN PLATELET VOLUME 8.5 FL (7.4-10.4); MONOCYTES # (AUTO) 1.4 X10'3 (0-0.9); MONOCYTES % (AUTO) 13.2 % (2-12); NEUTROPHILS # (AUTO) 7.8 X10'3 (1.8-7.7); NEUTROPHILS % (AUTO) 72.3 % (42-75); PLATELET COUNT 371 X10'3 (140-440); RED BLOOD COUNT 3.68 X10'6 (4.70-6.10); RED CELL DISTRIBUTION WIDTH 14.4 % (11.5-14.5); WHITE BLOOD COUNT 10.7 X10'3 (4.5-11.0)
[2021-10-17 06:26] LABS: ALANINE AMINOTRANSFERASE 23 U/L (12-78); ALBUMIN 2.3 G/DL (3.4-5.0); ALBUMIN/GLOBULIN RATIO 0.6 (1.1-1.5); ALKALINE PHOSPHATASE 37 IU/L (46-116); ANION GAP 10 (8-16); ASPARTATE AMINO TRANSFERASE 19 U/L (10-37); BILIRUBIN,TOTAL 0.3 MG/DL (0.1-1.0); BLOOD UREA NITROGEN 24 MG/DL (7-18); BUN/CREATININE RATIO 21.2 (5.4-32.0); CALCIUM 7.9 MG/DL (8.5-10.1); CHLORIDE 101 MMOL/L (99-107); CREATININE 1.13 MG/DL (0.60-1.10); GLUCOSE 110 MG/DL (70-104); POTASSIUM 3.1 MMOL/L (3.5-5.1); SODIUM 136 MMOL/L (135-145); TOTAL CARBON DIOXIDE 25.2 MMOL/L (24-32); TOTAL PROTEIN 6.2 G/DL (6.4-8.2); eGFR 66 ML/MIN
[2021-10-17] MEDS: heparin, porcine 5000 units/ml vial SQ SCH ×2 (07:42→19:09)
[2021-10-17] MEDS ORDERED: magnesium 2GM in 50ml NS 50 ML IV PRN (07:45)
[2021-10-17] MEDS ORDERED: potassium CL 10mEq/100ml bag 100 ML IV PRN (07:45)
[2021-10-17] MEDS ORDERED: magnesium Cl slow-release 64mg tablet PO PRN (07:45)
[2021-10-17] MEDS ORDERED: magnesium 4gm in 100ml NS 100 ML IV PRN (07:45)
[2021-10-17] MEDS ORDERED: POTASSIUM BICARB 20meq eff tab 20 MEQ TABLET.EFF PO PRN (07:45)
[2021-10-17] MEDS: carVEDilol 3.125mg tablet PO SCH (07:57)
[2021-10-17] MEDS: furosemide 40mg/4ml inj IV SCH (07:58)
[2021-10-17] MEDS: POTASSIUM BICARB 20meq eff tab 20 MEQ TABLET.EFF PO PRN ×2 (08:00→12:36)
[2021-10-17] MEDS: carvedilol 6.25mg tablet PO SCH ×2 (08:00→19:07)
[2021-10-17] MEDS: K and/or MAG REPLACEMENT MC SCH ×2 (08:00→20:00)
[2021-10-17] MEDS ORDERED: carVEDilol 3.125mg tablet PO ONE ×2 (08:15→12:00)
[2021-10-17] MEDS: amiodarone 200mg tablet PO SCH ×2 (08:24→19:07)
--- NOTE | 2021-10-17 10:52 | NUR ---
DM consult: Noted pt w/ hx of DM, per RN A1c lab sent to [facility] which showed greater than 14. Met w/ pt and S/O at bedside, provided w/ written and verbal DM ed w/ RD contact info. All questions answered to pt's satisfaction. Addendum: 10/17/21 at [address] Amended: Links added.
--- NOTE | 2021-10-17 12:04 | NUR ---
page to Demetrice for clarification: 3860A Jose. Pt has had 6.25mg of coreg this morning. Do you want me to give 3.125mg more now? Joan @3949
[2021-10-17] MEDS: insulin Lispro (HumaLOG) vial - multi-dose SQ SCH ×2 (13:20→19:04)
[2021-10-17] MEDS ORDERED: ondansetron 4mg rapidly disintigrating tab PO PRN (15:15)
--- NOTE | 2021-10-17 17:52 | NUR ---
patient brought in [employer] for dinner. I once again educated them about salt and fat content of food and how that does not fit his diet and again asked them not to bring in outside food.
--- NOTE | 2021-10-17 18:13 | NUR ---
Problems reprioritized. Patient report given, questions answered & plan of care reviewed with Laquita NELSON. Patient resting in bed in no acute distress.
[2021-10-17] MEDS: atorvastatin 20mg tablet PO SCH (21:11)
[2021-10-17] MEDS: acetaminophen 325mg tablet PO PRN (21:11)
[2021-10-17] MEDS: insulin glargine (Lantus) pen - multi-dose SQ SCH (21:55)
[2021-10-18] VITALS (11 sets, daily range): BP systolic 75–126; BP diastolic 38–84
[2021-10-18 06:38] LABS: BASOPHILS # (AUTO) 0.1 X10'3 (0-0.2); BASOPHILS % (AUTO) 0.6 % (0-1); EOSINOPHILS # (AUTO) 0.1 X10'3 (0-0.9); EOSINOPHILS % (AUTO) 0.6 % (0-6); HEMATOCRIT 28.7 % (42.0-52.0); HEMOGLOBIN 9.3 g/dl (14.0-17.9); LYMPHOCYTES # (AUTO) 1.4 X10'3 (1.1-4.8); LYMPHOCYTES % (AUTO) 13.7 % (21-51); MEAN CORPUSCULAR HEMOGLOBIN 25.4 PG (27.0-31.0); MEAN CORPUSCULAR HGB CONC 32.4 g/dL (33.0-36.5); MEAN CORPUSCULAR VOLUME 78.5 FL (78-98); MEAN PLATELET VOLUME 8.7 FL (7.4-10.4); MONOCYTES # (AUTO) 1.1 X10'3 (0-0.9); MONOCYTES % (AUTO) 10.8 % (2-12); NEUTROPHILS # (AUTO) 7.7 X10'3 (1.8-7.7); NEUTROPHILS % (AUTO) 74.3 % (42-75); PLATELET COUNT 378 X10'3 (140-440); RED BLOOD COUNT 3.65 X10'6 (4.70-6.10); WHITE BLOOD COUNT 10.4 X10'3 (4.5-11.0)
[2021-10-18 07:10] LABS: ALANINE AMINOTRANSFERASE 21 U/L (12-78); ALBUMIN 2.1 G/DL (3.4-5.0); ALBUMIN/GLOBULIN RATIO 0.5 (1.1-1.5); ALKALINE PHOSPHATASE 36 IU/L (46-116); ANION GAP 7 (8-16); ASPARTATE AMINO TRANSFERASE 17 U/L (10-37); BILIRUBIN,TOTAL 0.4 MG/DL (0.1-1.0); BLOOD UREA NITROGEN 30 MG/DL (7-18); BUN/CREATININE RATIO 23.4 (5.4-32.0); CALCIUM 7.7 MG/DL (8.5-10.1); CHLORIDE 100 MMOL/L (99-107); CREATININE 1.28 MG/DL (0.60-1.10); GLUCOSE 148 MG/DL (70-104); POTASSIUM 3.9 MMOL/L (3.5-5.1); SODIUM 134 MMOL/L (135-145); TOTAL CARBON DIOXIDE 27.1 MMOL/L (24-32); eGFR 58 ML/MIN
[2021-10-18] MEDS: K and/or MAG REPLACEMENT MC SCH ×2 (07:43→20:00)
[2021-10-18] MEDS: heparin, porcine 5000 units/ml vial SQ SCH ×2 (07:43→19:56)
[2021-10-18] MEDS: amiodarone 200mg tablet PO SCH ×2 (07:43→19:56)
[2021-10-18] MEDS: acetaminophen 325mg tablet PO PRN ×2 (07:43→23:45)
[2021-10-18] MEDS: furosemide 40mg/4ml inj IV SCH (07:43)
[2021-10-18] MEDS: carvedilol 6.25mg tablet PO SCH (07:43)
--- NOTE | 2021-10-18 09:10 | NUR ---
Initial :Pt admitted w/ L pleural effusion and acute on chronic CHF per EMR. Currently on Carb control diet w/ avg intake 55% x 10 meals partially meeting needs. LBM 10/14 which may be impacting PO to some degree, pt received PRN MoM on 10/15, recommend addition of routine bowel care if MD agreeable. Will recommend Glucerna BID to assist w/ meeting needs. Will continue to monitor. Recs: 1. Continue Carb control diet as tolerated 2. Glucerna BIDBD; pending MD verification 3. Routine bowel care if MD agreeable 4. Weekly wts Addendum: 10/18/21 at [address] Amended: Links added.
[2021-10-18] MEDS: insulin Lispro (HumaLOG) vial - multi-dose SQ SCH ×2 (09:51→13:54)
[2021-10-18] MEDS: furosemide 20 MG/2 ML vial IV SCH (10:20)
[2021-10-18] MEDS ORDERED: normal saline 250ml IV soln 250 ML IV ONE (11:05)
--- NOTE | 2021-10-18 11:48 | NUR ---
Page Sent promotional table spacer PAGER ID: [phone] MESSAGE: [id number] Jose. Patient BP 75/42 after 250 ml bolus NS per Demetrice. Before bolus pt BP 78/39. HR 80s -90s. Joan @4810 (118 character message out of a maximum of 240)
--- NOTE | 2021-10-18 17:13 | NUR ---
patient once again educated about the use of urinal to keep track of output - reinforcement needed again
[2021-10-18] MEDS ORDERED: NUT.TX.GLUC.INTOLER,LAC-FR,SOY (GLUCERNA) 237 ML PO SCH (17:30)
--- NOTE | 2021-10-18 18:41 | NUR ---
Report given to Laquita NELSON. Patient resting in bed in no acute distress.
[2021-10-18] MEDS: carVEDilol 3.125mg tablet PO SCH (19:56)
[2021-10-18] MEDS: atorvastatin 20mg tablet PO SCH (20:04)
[2021-10-18] MEDS: insulin glargine (Lantus) pen - multi-dose SQ SCH (21:00)
--- NOTE | 2021-10-18 23:00 | NUR ---
made aware of pt soft BP's. No new orders. Continuing to monitor and maintain MAP > 60
[2021-10-18] MEDS: POTASSIUM BICARB 20meq eff tab 20 MEQ TABLET.EFF PO PRN (23:44)
[2021-10-19 02:00] VITALS: BP 96/66
[2021-10-19 06:00] VITALS: BP 94/72
--- NOTE | 2021-10-19 06:15 | NUR ---
Patient in room PCU 3018. I have received report from OMAR Yun and had the opportunity to ask questions and assume patient care.
[2021-10-19] MEDS: K and/or MAG REPLACEMENT MC SCH (08:00)
[2021-10-19 08:30] VITALS: BP 108/69
[2021-10-19] MEDS: carVEDilol 3.125mg tablet PO SCH (08:31)
[2021-10-19] MEDS: amiodarone 200mg tablet PO SCH (08:31)
[2021-10-19] MEDS: furosemide 20 MG/2 ML vial IV SCH (08:32)
[2021-10-19] MEDS: heparin, porcine 5000 units/ml vial SQ SCH (08:32)
[2021-10-19] MEDS: insulin Lispro (HumaLOG) vial - multi-dose SQ SCH (08:44)
[2021-10-19 09:15] LABS: ALANINE AMINOTRANSFERASE 22 U/L (12-78); ALBUMIN 2.3 G/DL (3.4-5.0); ALBUMIN/GLOBULIN RATIO 0.5 (1.1-1.5); ALKALINE PHOSPHATASE 39 IU/L (46-116); ANION GAP 5 (8-16); ASPARTATE AMINO TRANSFERASE 18 U/L (10-37); BILIRUBIN,TOTAL 0.4 MG/DL (0.1-1.0); BLOOD UREA NITROGEN 28 MG/DL (7-18); BUN/CREATININE RATIO 24.1 (5.4-32.0); CHLORIDE 98 MMOL/L (99-107); CREATININE 1.16 MG/DL (0.60-1.10); GLUCOSE 124 MG/DL (70-104); POTASSIUM 3.9 MMOL/L (3.5-5.1); SODIUM 131 MMOL/L (135-145); TOTAL CARBON DIOXIDE 28.4 MMOL/L (24-32); TOTAL PROTEIN 6.5 G/DL (6.4-8.2); eGFR 64 ML/MIN
--- NOTE | 2021-10-19 10:27 | NUR ---
Reassessment of Tylenol due at 1135 not documented by RN on NOC shift. This RN was not present for that administration or reassessment.
--- NOTE | 2021-10-19 10:31 | NUR ---
K/Mg protocol replacement protocol not documented in eMAR for 10/18/21 at 2000 D/T downtime on NOC shift
[2021-10-19 11:00] VITALS: BP 86/55
[2021-10-19] MEDS ORDERED: LOSA25TA96 PO (11:32)
[2021-10-19] MEDS ORDERED: METF-881 PO (13:09)
--- NOTE | 2021-10-19 14:00 | NUR ---
Pt discharged to home with all belongings, in private vehicle, accompanied by . Discharge instructions and medications reviewed. [facility] [address]. Pt instructed to follow up with PCP and regulatory compliance coordinator in the next week, and to return to ED if symptoms return. Education provided regarding diabetic medications and the importance of checking blood glucose daily, as well as daily weights for CHF. Pt and state understanding and willingness to comply with discharge instructions. IV DC'd, cannula intact. Pt escorted to front lobby via wheelchair by PCT.
[2021-10-19] MEDS ORDERED: FURO-150 PO (17:02)
== END 2021-10-19 14:02 | disposition home health service (06) | DRG 291 ==
LOC: ER 10:10 → ED HOLD 13:59 → PCU 3S 16:32
PROVIDERS: ADMIT Internal Medicine; ATTEND Internal Medicine
PROC: BW241ZZ Computerized Tomography (CT Scan) of Chest and Abdomen using Low Osmolar Contrast (ICD-10-PCS; 2021-10-14)
PROC: 0W9B3ZZ Drainage of Left Pleural Cavity, Percutaneous Approach (ICD-10-PCS; principal; 2021-10-17)
PROC: 0W993ZZ Drainage of Right Pleural Cavity, Percutaneous Approach (ICD-10-PCS; 2021-10-17)
DX: I13.0 Hypertensive heart and chronic kidney disease with heart failure and stage 1 through stage 4 chronic kidney disease, or unspecified chronic kidney disease (principal); I50.43 Acute on chronic combined systolic (congestive) and diastolic (congestive) heart failure; N17.0 Acute kidney failure with tubular necrosis; I69.354 Hemiplegia and hemiparesis following cerebral infarction affecting left non-dominant side; E87.1 Hypo-osmolality and hyponatremia; J91.8 Pleural effusion in other conditions classified elsewhere; N18.30 Chronic kidney disease, stage 3 unspecified; E11.40 Type 2 diabetes mellitus with diabetic neuropathy, unspecified; E87.6 Hypokalemia; E11.22 Type 2 diabetes mellitus with diabetic chronic kidney disease; I48.0 Paroxysmal atrial fibrillation; I95.9 Hypotension, unspecified; D72.828 Other elevated white blood cell count; E11.65 Type 2 diabetes mellitus with hyperglycemia; E78.5 Hyperlipidemia, unspecified; I08.1 Rheumatic disorders of both mitral and tricuspid valves; Z79.84 Long term (current) use of oral hypoglycemic drugs; Z87.891 Personal history of nicotine dependence; Z28.310 Unvaccinated for COVID-19; Z86.16 Personal history of COVID-19; Z88.1 Allergy status to other antibiotic agents; Z79.899 Other long term (current) drug therapy
CPT/HCPCS: 32555; 36415; 71045; 71260; 80053; 82948; 83605; 83880; 84145; 84484; 85025; 87040; 87070; 87081; 93005; 93306; 96374; 96375; 97110; 97116; 97161; 97530; 99285; A4615; C1729; G0378; J0282; J0696; J1644; J1815; J1940; J2405; J3490; J7030; J7040; J7050; Q9967